=== PATIENT | male | born 1975 | race Caucasian/White ===

== ENCOUNTER 2018-01-10 15:22 | Emergency (ER) | payer MEDICAID, SELFPAY ==
[2018-01-10 15:22] VITALS: BP 114/70; PULSE 71; RESP 16; TEMP 36.9; O2SAT 97; BMI 23.0
--- NOTE | 2018-01-10 15:49 | ED.DCSUM_ITS ---
- ER Visit Summary Date of Service: 01/10/18 Chief Complaint: Facial swelling History of Present Illness: The patient is a [address] Yandel Tello and does not have a dentist. He reports his swelling to the right side of his face that began this morning. He reports he has dental pain on the right maxillary area that began yesterday. It is a sharp, throbbing pain that is 6 out of 10 currently and 9 out of 10 at worst. Reports is increased with eating. Is not sensitive to hot or cold temperatures. Is not taking anything for pain. Physical Examination: Vitals: Stable. Afebrile. Mouth: No trismus. No edema of the floor of the mouth. Pain with percussion of the right maxillary canine through first molar. There is severe decay. There is no focal abscess. He does have mild facial swelling. General: A&O x 3. NAD. Cardiovascular exam: Regular rate and rhythm, no murmur, rub or gallop. Respiratory exam: Clear to auscultation bilaterally. No wheezes or stridor. Abdominal exam: Soft, nontender, nondistended, normal bowel sounds. No peritoneal signs. Extremity: No clubbing, cyanosis, or edema. Emergency Department Course and Treatment: Patient was treated with penicillin and ibuprofen. Treatment Plan: Patient be discharged on penicillin ibuprofen. Instructed to follow-up the dentist as soon as possible. Is given a list of local dentist. Disposition: To home in improved and stable condition. Impression: 1. Dental abscess. This note was generated with [employer] dictation software. It may contain incorrect words, spelling, and punctuation that were not noted in review of the chart prior to signing ED Disposition - Plan for ED Patient: Disposition: Home or Assisted Living Chief Complaint: Dental Instructions: ED Abscess Dental Prescriptions: Ibuprofen [Motrin] 800 mg PO TID PRN PRN #20 tablet PRN Reason: Pain Penicillin V Potassium 500 mg PO 4X/DAY #40 tablet Referrals: Dentist,Your [STAFF PHYSICIAN] - As soon as possible
[2018-01-10] MEDS: Ibuprofen 400 MG Tablet 800 MG PO (16:00)
[2018-01-10] MEDS: Penicillin Vk 250 MG Tablet 500 MG PO (16:00)
[2018-01-10 16:01] VITALS: RESP 18
== END 2018-01-10 16:01 | disposition home or self-care (01) ==
PROVIDERS: Emergency Provider Emergency Medicine; Family Provider Family Medicine; PCP Family Medicine
DX: K04.7 Periapical abscess without sinus (principal); F11.21 Opioid dependence, in remission; Z72.0 Tobacco use
CPT/HCPCS: 99283

== ENCOUNTER 2018-08-26 13:54 | Emergency (ER) | payer MEDICAID, SELFPAY ==
[2018-08-26 13:54] VITALS: BP 122/79; PULSE 73; RESP 16; TEMP 36.7; O2SAT 97; BMI 23.0
--- NOTE | 2018-08-26 15:23 | ED.VISSUMM ---
- ER Visit Summary Date of Service: 08/26/18 Chief Complaint: Mouth pain History of Present Illness: The patient is a 43 M with mouth pain and swelling for several days. Patient has a history of dental decay. He says he has swelling sore. No other associated symptoms. Physical Examination: Afebrile and vital signs are unremarkable. Patient has widespread dental decay and a history of multiple extractions. There is some focal swelling posterior to tooth #8. Gums otherwise unremarkable. Otherwise exam unremarkable. Test Results: None indicated Emergency Department Course and Treatment: Needle aspiration was negative. Patient will be treated with Pen VK and referred to dental. Treatment Plan: As above Disposition: Discharge Impression: 1. Oral lesion This note was generated with [employer] dictation software. It may contain incorrect words, spelling, and punctuation that were not noted in review of the chart prior to signing ED Disposition - Plan for ED Patient: Referrals: Yandel Tello MD [Primary Care Provider] -
--- NOTE | 2018-08-26 15:26 | ED.DCSUM_ITS ---
- ER Visit Summary Date of Service: 08/26/18 Chief Complaint: Mouth pain History of Present Illness: The patient is a 43 M with mouth pain and swelling for several days. Patient has a history of dental decay. He says he has swelling sore. No other associated symptoms. Physical Examination: Afebrile and vital signs are unremarkable. Patient has widespread dental decay and a history of multiple extractions. There is some focal swelling posterior to tooth #8. Gums otherwise unremarkable. Otherwise exam unremarkable. Test Results: None indicated Emergency Department Course and Treatment: Needle aspiration was negative. Patient will be treated with Pen VK and referred to dental. Treatment Plan: As above Disposition: Discharge Impression: 1. Oral lesion This note was generated with [employer] dictation software. It may contain incorrect words, spelling, and punctuation that were not noted in review of the chart prior to signing ED Disposition - Plan for ED Patient: Referrals: Yandel Tello MD [Primary Care Provider] -
--- NOTE | 2018-08-26 15:26 | ED.DEP ---
ED Disposition - Plan for ED Patient: Instructions: ED Abscess Dental Prescriptions: Penicillin V Potassium 500 mg PO 4X/DAY #40 tab Referrals: Desire Mathews [NON-STAFF] -
== END 2018-08-26 15:33 | disposition home or self-care (01) ==
PROVIDERS: Emergency Provider Emergency Medicine
DX: K13.70 Unspecified lesions of oral mucosa (principal); Z72.0 Tobacco use
CPT/HCPCS: 99282

== ENCOUNTER 2022-09-27 21:19 | Emergency (ER) | payer MEDICAID, SELFPAY ==
[2022-09-27 21:20] VITALS: BP 118/76; PULSE 88; RESP 16; TEMP 36.2; O2SAT 100; BMI 20.6
--- NOTE | 2022-09-27 21:24 | EKG12_ITS ---
Test Reason : CP Blood Pressure : / mmHG Vent. Rate : 067 BPM Atrial Rate : 067 BPM P-R Int : 146 ms QRS Dur : 096 ms QT Int : 372 ms P-R-T Axes : 065 082 056 degrees QTc Int : 393 ms Normal sinus rhythm Normal ECG Confirmed by RODOLFO MANN, AMANDA ([id number]), editor at large LESLI LEE ([id number]) on 09/28/2022 1:11:05 PM Referred By: ADELFO Confirmed By:BETINA REYNOLDS MD
--- NOTE | 2022-09-27 21:29 | RAD_ITS ---
INDICATION: COUGH EXAMINATION/TECHNIQUE: X-RAY - XR Chest 1 View COMPARISON: Frontal view FINDINGS: LINES/DEVICES: None. LUNGS: No consolidation, edema or effusion. No pneumothorax. MEDIASTINUM AND CARDIOVASCULAR STRUCTURES: Cardiac silhouette not enlarged. Central airways and mediastinal contour are unremarkable. BONES AND SOFT TISSUES: Unremarkable. RAD/Chest 1 View (Portable) IMPRESSION: No radiographic evidence of acute cardiopulmonary disease. Electronically Signed: Jaxon Saenz DO at 22:27 EDT ,
--- NOTE | 2022-09-27 22:13 | ED.VIS.CHEST ---
HPI History of Present Illness Chief Complaint: Chest Pain Informant: patient Onset/Context/Timing Onset: Hours (1 hour [employer]) Activity at onset: gradual, onset, activity on onset and rest (Prior lying down on the couch, and then worse when he lie down) Timing: Continuous Quality: Positive for Sharp Location: Substernal (Lower substernal without radiation) Current Severity: Mild Maximum Severity: Severe Worsened By: Nothing (Except a little worse by the lying down) Relieved By: - (Sitting up some) Associated Symptoms: Positive for Cough (Cough or the last 3 days with occasional sputum production no blood); Negative for Nausea, Vomiting, Diaphoresis, Dyspnea, Fever, Lightheadedness or Palpitations Narrative Narrative: Healthy patient that started having chest pain especially with lying down supine an hour prior to getting here by EMS. States it really hurt bad, but now it is still there but not very bad. Denies any significant dyspnea. No palpitations or syncope/near syncope. No recent travel or history of PE/DVT or leg pain or swelling. No other immobilization. PFSH PFSH Medical History no medical history no medical history Home Medications buprenorphine 4 mg-naloxone 1 mg sublingual film (Suboxone) 6 mg sublingual DAILY 01/10/18 [History Last Taken Unknown] penicillin V potassium 500 mg tablet 500 mg PO 4X/DAY #40 tabs 08/26/18 [Rx Last Taken Unknown] Allergy/AdvReac Type Severity Reaction Status Date / Time No Known Allergies Allergy Verified 08/26/18 13:54 Social History Smoking Status: Current every day smoker tobacco type: cigarettes ROS ROS ED Constitutional Constitutional ED: Denies chills or fever(s) Eyes Eyes: Denies change in vision or diplopia ENT ENT ED: Denies rhinorrhea or sore throat Cardiovascular Cardiovascular: Reports chest pain; Denies leg edema or palpitations Respiratory/Chest Respiratory/Chest: Reports cough, dyspnea and sputum Gastrointestinal Gastrointestinal: Denies abdominal pain, diarrhea, nausea or vomiting Genitourinary Genitourinary ED: Denies dysuria or hematuria Musculoskeletal Musculoskeletal: Denies back pain or neck pain Integumentary Denies abscess or rash Neurologic Neurologic: Denies headache(s), paresthesias or weakness Psychiatric Psychiatric: Denies anxiety or suicidal thoughts EXAM Physical Exam Const Vital Signs: 09/27/22 21:20 09/27/22 21:22 09/27/22 22:22 Temperature 97.2 F L Temperature Source Temporal Pulse Rate 88 62 Respiratory Rate 16 15 Respiratory Effort Normal Non-Labored Blood Pressure 118/76 114/67 Blood Pressure Mean 90 82 Pulse Ox 100 98 Oxygen Delivery Method Room Air Room Air 09/27/22 23:29 Temperature Temperature Source Pulse Rate 82 Respiratory Rate 16 Respiratory Effort Blood Pressure 124/79 H Blood Pressure Mean 94 Pulse Ox 98 Oxygen Delivery Method Room Air Positive well nourished and well developed General Appearance ED: well developed and NAD HEENT Reports moist mucous membranes normocephalic and atraumatic Eyes PERRL and EOMs intact bilaterally Neck full ROM and supple Chest Wall inspection of chest normal and palpation of chest normal Resp normal respiratory effort and clear to auscultation bilaterally Cardio regular rate, regular rhythm and no murmurs Rate: Negative for tachycardic GI non-tender and non-distended Auscultation: normoactive bowel sounds Palpation: soft Back/Spine no CVA tenderness General Back: other FROM Extremity normal to inspection Extremity Narrative: No calf tenderness or palpable cords General Extremety ED: Negative for edema, pulses abnormal or tenderness General Extremity: Negative for edema or pulses abnormal Neuro oriented x3, CN's II-XII intact bilaterally and no sensory deficits noted Sensorium / Orientation: awake and alert Motor Exam: strength 5/5 throughout Psych mental status grossly normal Skin no rashes or lesions noted and no wounds Heart Score History: Slightly/Non-Suspicious ECG: Normal Age: </= 45 years Risk Factors: 1 or 2 Risk Factors Troponin: </= Normal Limit Score: 1 MDM MDM MDM Narrative Medical decision making narrative: PERC score is 0, therefore ruling out acute pulmonary embolus as cause for the symptoms without further work-up indicated. Chest ray 1 view my interpretation is negative for mediastinal widening, pneumothorax, infiltrate. It is normal-appearing. His troponin is 4, very reassuring I do not think this needs to be repeated, since we given a GI cocktail and viscous the discomfort resolves. I offered him an antitussive prescription he declines, reassured this is likely simply viral URI, his vital signs are normal with no hypoxemia, stable for discharge home. Likely esophageal in etiology as far as the etiology of the pain, I think it was probably related to swallowing lots of sputum lately. Lab Data Attestation: I reviewed the patient's lab results. Labs: Laboratory Results - last 24 hr 09/27/22 22:25 Troponin I High Sens 4 Radiography Diagnostic Testing: Clinical Impression(s) from Imaging Studies Chest X-Ray 09/27/22 21:29 IMPRESSION: No radiographic evidence of acute cardiopulmonary disease. Electronically Signed: Jaxon Saenz DO at 22:27 EDT Reading Location ID and State: [facility] / MD Tel [phone], Service support , Rhythm Strip Rhythm Strip: Sinus Rhythm Rate: 65 Ectopy: None EKG Initial EKG: Attestation: I personally reviewed and interpreted this EKG as follows: Interpretation: Sinus Rhythm and No Acute Injury Pattern Comments: Normal EKG Discharge Plan Triage Chief Complaint: Chest Pain ED Provider: Selvin Whitehead Dx/Rx/DC Orders Clinical Impression: Chest pain, non-cardiac, Viral URI with cough Instructions: ED Chest Pain, Noncardiac Prescriptions: No Action buprenorphine-naloxone [Suboxone] 1 EACH film 6 mg sublingual DAILY penicillin V potassium 500 MG tablet 500 mg PO 4X/DAY Qty: 40 0RF Primary Care Provider: Aurelia Manrique NP Referrals: Aurelia Manrique NP, [employer] [Primary Care Provider] - 3-5 Days if not improving Disposition Disposition: Home, Self Care
[2022-09-27] MEDS: Mag Hydrox/Al Hydrox/Simeth 30 ML UDC PO (22:21)
[2022-09-27 22:22] VITALS: BP 114/67; PULSE 62; RESP 15; O2SAT 98
[2022-09-27 22:46] LABS: Troponin-I HS 4 pg/mL (3.0-78.0)
[2022-09-27 23:29] VITALS: BP 124/79; PULSE 82; RESP 16; O2SAT 98
== END 2022-09-28 00:07 | disposition home or self-care (01) ==
PROVIDERS: Emergency Provider Emergency Medicine; PCP Nurse Practitioner Primary Care; Visit Provider Emergency Medicine
DX: R07.89 Other chest pain (principal); J06.9 Acute upper respiratory infection, unspecified; F17.210 Nicotine dependence, cigarettes, uncomplicated
CPT/HCPCS: 71045; 84484; 93005; 99285

== ENCOUNTER 2023-12-24 18:40 | Emergency (ER) | payer MEDICAID, SELFPAY ==
[2023-12-24 18:41] VITALS: BP 128/80; PULSE 84; RESP 16; TEMP 35.8; O2SAT 97; BMI 19.0
[2023-12-24] MEDS: Amox/Clavulanate 875 MG Tablet PO (19:14)
[2023-12-24] MEDS: Lidocaine 2% /Epi 1:100 (20ml) 20 ML VIAL INFILT (19:15)
--- NOTE | 2023-12-24 19:41 | EX.ED.DYSGE1 ---
HPI History of Present Illness Chief Complaint: Laceration Informant: patient Narrative Narrative: Patient is a 48-year-old male with no reported significant past medical history. He states that he got up this morning and was walking to the bathroom when he tripped and fell and struck his head. He denies any loss of consciousness history of bleeding disorder or blood thinner use. He states he sustained a cut to his forehead with the fall and he was unsure if this needed sutures or not so therefore comes in for evaluation. He also reports he has had a lump in his right armpit and he is unsure if this is infected or not [facility] Home Medications ?Medication ?Instructions ?Recorded ?Last Taken ?Type buprenorphine 4 mg-naloxone 1 mg 6 mg sublingual DAILY 01/10/18 Unknown History sublingual film (Suboxone) penicillin V potassium 500 mg 500 mg PO 4X/DAY #40 tabs 08/26/18 Unknown Rx tablet amoxicillin 875 mg-potassium 1 tab PO BID 7 days #14 tabs 12/24/23 Unknown Rx clavulanate 125 mg tablet Allergy/AdvReac Type Severity Reaction Status Date / Time No Known Allergies Allergy Verified 08/26/18 13:54 Social History Smoking Status: Current every day smoker tobacco type: cigarettes ROS ROS ED Constitutional Constitutional ED: Denies chills or fever(s) Eyes Eyes: Denies blurry vision or change in vision ENT ENT ED: Denies sore throat Cardiovascular Cardiovascular: Denies chest pain Respiratory/Chest Respiratory/Chest: Denies cough or dyspnea Gastrointestinal Gastrointestinal: Denies abdominal pain, diarrhea, nausea or vomiting Genitourinary Genitourinary ED: Denies dysuria Musculoskeletal Musculoskeletal: Denies myalgias or neck pain Integumentary Reports abscess and Abrasions Neurologic Neurologic: Denies headache(s) Hematologic/Lymphatic Hematologic/Lymphatic: Denies easy bleeding or easy bruising EXAM Physical Exam Const Vital Signs: 12/24/23 18:41 Temperature 96.5 F L Temperature Source Temporal Pulse Rate 84 Respiratory Rate 16 Blood Pressure 128/80 H Blood Pressure Mean 96 Pulse Ox 97 Oxygen Delivery Method Room Air Positive well nourished and well developed General Appearance ED: well developed HEENT HEENT Narrative: No signs of depressed or basilar skull fracture Patient has a 1.5 cm linear dermal layer deep laceration just above the medial right eyebrow with a surrounding small hematoma consistent with his report of trauma No septal hematoma Eyes PERRL and EOMs intact bilaterally Eyes Narrative: No hyphema noted Neck supple Neck Narrative: No bony deformity or step-off of the cervical spine no midline tenderness to palpation Chest Wall palpation of chest normal Resp normal respiratory effort and clear to auscultation bilaterally Cardio regular rate and regular rhythm Extremity normal to inspection Neuro oriented x3, CN's II-XII intact bilaterally and no sensory deficits noted Sensorium / Orientation: alert Motor Exam: strength 5/5 throughout Psych mental status grossly normal Skin Skin Narrative: Patient has a small 1 x 1 cm area of erythema and induration in the right axilla consistent with abscess. No active drainage or lymphangitic streaking noted. MDM MDM MDM Narrative Medical decision making narrative: Patient arrived to ER with stable vitals. He reported a mechanical fall that led to head injury multiple hours ago. He denies any history of bleeding disorder or blood thinner use. He states that there has been no headache or change in vision and therefore I do not feel there is need for head CT as my concern for underlying skull fracture versus subdural epidural hematoma is low. The laceration is only dermal layer deep and there is no active bleeding therefore will be closed with Dermabond as documented below. Patient also has a small abscess in the right axilla. There are no signs of systemic infection and he is not immunosuppressed therefore the area will be incised and drained and he will be placed on antibiotics but otherwise is safe for discharge Patient had the right forehead laceration cleaned with chlorhexidine. Manual pressure was applied to bring the wound edges together good approximation. Dermabond was then applied holding the wound edges together well. Patient tolerated procedure well without complication Patient had the right axilla cleaned with chlorhexidine. It was anesthetized with 5 mL of 2% lidocaine with epinephrine in local fashion. A #11 blade was used to make a 1 cm incision over top the area of induration. A moderate amount of purulent material was expressed. Loculations were dissected with a needle landa. The area was then copiously irrigated with normal saline. Patient tolerated the procedure well without complication History & Record Review Discussion w/independent historian: Patient Discharge Plan Triage Chief Complaint: Laceration Other Complaint: Abscess ED Provider: Lanre Marroquin Dx/Rx/DC Orders Clinical Impression: Abscess of axilla, right, Hematoma, Head injury Instructions: ED Abscess Incision And Drainage, ED Head Injury (Adult) Prescriptions: New amoxicillin-pot clavulanate 875-125 mg tablet 1 tab PO BID 7 Days Qty: 14 0RF No Action buprenorphine-naloxone [Suboxone] 1 EACH film 6 mg sublingual DAILY penicillin V potassium 500 MG tablet 500 mg PO 4X/DAY Qty: 40 0RF Primary Care Provider: Maico Abad Referrals: Maico Abad MD [Primary Care Provider] - Activity Restrictions/Additional Instructions: Please take the antibiotic as directed to resolve the remaining infection of the right armpit. The Dermabond applied to your forehead will fall off like a scab over the course of 10 to 14 days. Return to the ER should you have any further concerns Print Language: Vietnamese Disposition Disposition: Home, Self Care Discharge Date/Time: 12/24/23 19:57
[2023-12-24 19:56] VITALS: BP 112/75; PULSE 81; RESP 16; TEMP 36.7; O2SAT 97
== END 2023-12-24 19:57 | disposition home or self-care (01) ==
PROVIDERS: Emergency Provider Emergency Medicine; PCP Family Medicine; Visit Provider Emergency Medicine
DX: L02.411 Cutaneous abscess of right axilla (principal); S00.93XA Contusion of unspecified part of head, initial encounter; F17.210 Nicotine dependence, cigarettes, uncomplicated; W19.XXXA Unspecified fall, initial encounter
CPT/HCPCS: 99282

== ENCOUNTER 2024-06-29 14:14 | Emergency (ER) | payer MEDICAID, SELFPAY ==
[2024-06-29 14:15] VITALS: BP 115/65; PULSE 62; RESP 14; TEMP 36.2; O2SAT 99
--- NOTE | 2024-06-29 14:23 | RAD_ITS ---
EXAM: XR Right Foot Complete, 3 or More Views CLINICAL INDICATION: TECHNIQUE: Frontal, lateral and oblique views of the right foot. COMPARISON: No relevant prior studies available. FINDINGS: BONES/JOINTS: Comminuted mildly displaced fracture of the 5th metatarsal. Soft tissue swelling. No dislocation. SOFT TISSUES: See above. RAD/Foot min 3 Views IMPRESSION: Comminuted mildly displaced fracture of the 5th metatarsal. Soft tissue swelli ng. Reading Location: [facility]
--- NOTE | 2024-06-29 16:35 | EX.ED.DYSGE1 ---
HPI History of Present Illness Chief Complaint: Lower Extremity Injury Narrative Narrative: Patient is a 49-year-old male with past medical history of opiate abuse on Suboxone who presents to the emergency department chief complaint of right foot pain. He states that he got up in the middle the night and hit his foot on a TV stand and felt a crack and immediate pain. He states that the pain caused him to drop to his knees. He states that he had difficulty ambulating on this therefore he came here further evaluation management. PFSH [facility] Home Medications ?Medication ?Instructions ?Recorded ?Last Taken ?Type buprenorphine 4 mg-naloxone 1 mg 6 mg sublingual DAILY 01/10/18 Unknown History sublingual film (Suboxone) penicillin V potassium 500 mg 500 mg PO 4X/DAY #40 tabs 08/26/18 Unknown Rx tablet amoxicillin 875 mg-potassium 1 tab PO BID 7 days #14 tabs 12/24/23 Unknown Rx clavulanate 125 mg tablet Allergy/AdvReac Type Severity Reaction Status Date / Time No Known Allergies Allergy Verified 06/29/24 14:15 Social History Smoking Status: Current every day smoker tobacco type: cigarettes ROS ROS ED ROS Narrative Constitutional: Denies headaches, lightness, dizziness Neurological: Denies numbness, weakness, tingling Musculoskeletal: Complains of right foot pain as noted above Skin: Complains of bruising noted to the dorsal aspect of his right foot EXAM Physical Exam Narrative Exam Narrative: General: Patient lying in bed rest comfortably did not appear to be acute distress Head: Atraumatic, normocephalic Eyes: PERRL bilateral, EOMI bilaterally, no conjunctival injection noted Neck: Soft, supple, trachea midline Musculoskeletal: Tenderness palpation along the dorsal lateral right foot no tenderness palpation, although bony prominence palpated joints taken through full range of motion no pain elicited Extremities: DP pulses +2/4 in the bilateral extremities, +5/5 strength noted in the bilateral upper and lower extremities, no pedal edema noted on exam Neurological: Patient following commands knew that he was at [facility] year is 2024. Sensation grossly intact Skin: Warm, dry, intact no rashes or lesions noted Const Vital Signs: 06/29/24 14:15 Temperature 97.1 F L Temperature Source Temporal Pulse Rate 62 Respiratory Rate 14 Blood Pressure 115/65 Blood Pressure Mean 81 Pulse Ox 99 Oxygen Delivery Method Room Air MDM MDM MDM Narrative Medical decision making narrative: Patient is a 49-year-old male who presented to the emerged part with chief complaint of right foot pain. On the differential diagnose includes Melamin to metatarsal fracture, musculoskeletal strain, lateral malleolus fracture. Once workup is obtained reviewed he will be reevaluated. Patient is on Suboxone therefore he does not want any narcotics he states that he will take ibuprofen. Patient's x-ray of his right foot reviewed by myself and by radiology which showed a comminuted mildly placed fracture of the fifth metatarsal with soft tissue swelling. Did discuss case with on-call foot and ankle surgeon Dr. Fuentes who states to place the patient in a splint and keep him nonweightbearing and call his office first thing next week for an appointment. Patient was advised to do not bear weight on this to rotate Tylenol and ibuprofen [id number]. He is advised to follow-up with the foot and ankle surgeon that I discussed with above. He is advised to ice, elevate and keep the splint dry and clean. He is agreeable this plan he like to go home at this point time all question concerns answered is discharged home in stable condition. Radiography Diagnostic Testing: Clinical Impression(s) from Imaging Studies Foot X-Ray 06/29/24 14:23 IMPRESSION: Comminuted mildly displaced fracture of the 5th metatarsal. Soft tissue swelling. Reading Location: [facility] Discharge Plan Triage Chief Complaint: Lower Extremity Injury ED Provider: Kishore Patterson Dx/Rx/DC Orders Clinical Impression: Closed fracture of fifth metatarsal bone Prescriptions: No Action buprenorphine-naloxone [Suboxone] 1 EACH film 6 mg sublingual DAILY penicillin V potassium 500 MG tablet 500 mg PO 4X/DAY Qty: 40 0RF amoxicillin-pot clavulanate 875-125 mg tablet 1 tab PO BID 7 Days Qty: 14 0RF Stand Alone Forms: ED Work / School Excuse Primary Care Provider: Maico Abad Referrals: Maico Abad MD [Primary Care Provider] - Gonzales Fuentes DPM [Med Staff - Courtesy Staff] - Activity Restrictions/Additional Instructions: Rotate Tylenol and ibuprofen [id number] for pain control when you do this you can take something every 3 hours. Ice, elevate, do not bear weight on your right lower extremity. Keep the splint in place dry and clean. Call on Tuesday for an appointment to Dr. Fuentes office for appointment. Return with worsening symptoms or any concerns. Print Language: [place] Citizen Disposition Disposition: Home, Self Care
[2024-06-29] MEDS: Ibuprofen 600 MG Tablet PO (16:41)
== END 2024-06-29 17:46 | disposition home or self-care (01) ==
PROVIDERS: Emergency Provider Emergency Medicine; PCP Family Medicine; Visit Provider Emergency Medicine
DX: S92.351A Displaced fracture of fifth metatarsal bone, right foot, initial encounter for closed fracture (principal); F11.10 Opioid abuse, uncomplicated; W22.09XA Striking against other stationary object, initial encounter; F17.210 Nicotine dependence, cigarettes, uncomplicated; Z79.891 Long term (current) use of opiate analgesic
CPT/HCPCS: 29515; 73630; 99283

== ENCOUNTER 2024-07-10 14:12 | Emergency (ER) | payer MEDICAID, SELFPAY ==
[2024-07-10 14:13] VITALS: BP 136/93; PULSE 95; RESP 18; TEMP 36.2; O2SAT 96
--- NOTE | 2024-07-10 15:36 | ED.VIS.LOWEX ---
HPI History of Present Illness HPI Narrative: Patient presents with coldness and bruising to his right foot that began last night. Patient states he has a fracture in his right foot and is in a walking boot. Patient states he used some blankets and moist heat which helped. Patient denies any coldness at the present time. Patient describes his pain as aching. Patient denies any paresthesias or weakness. 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 Chief Complaint: Lower Extremity Injury Informant: patient Onset/Context/Timing Onset: Yesterday Context: Gradual Onset Timing: Continuous Location: Right foot Worsened by: Nothing Relieved by: Heat Associated Symptoms Associated Symptoms: Negative for Parasthesia, Weakness or Loss of Funtion PFSH PFS Home Medications ?Medication ?Instructions ?Recorded ?Last Taken ?Type buprenorphine 4 mg-naloxone 1 mg 6 mg sublingual DAILY 01/10/18 Unknown History sublingual film (Suboxone) penicillin V potassium 500 mg 500 mg PO 4X/DAY #40 tabs 08/26/18 Unknown Rx tablet amoxicillin 875 mg-potassium 1 tab PO BID 7 days #14 tabs 12/24/23 Unknown Rx clavulanate 125 mg tablet Allergy/AdvReac Type Severity Reaction Status Date / Time No Known Allergies Allergy Verified 07/10/24 14:13 Surgical History (Updated 07/10/24 @ 15:[address] Gregg Ferreira DO) S/P trigger finger release Social History Smoking Status: Current every day smoker tobacco type: cigarettes ROS ROS ED Constitutional Constitutional ED: Denies chills or fever(s) Eyes Eyes: Denies blurry vision or change in vision ENT ENT ED: Denies rhinorrhea or sore throat Cardiovascular Cardiovascular: Denies chest pain or palpitations Respiratory/Chest Respiratory/Chest: Denies cough or dyspnea Gastrointestinal Gastrointestinal: Denies nausea or vomiting Genitourinary Genitourinary ED: Denies dysuria or hematuria Musculoskeletal Musculoskeletal: Denies back pain or neck pain Integumentary Denies abscess or rash Neurologic Neurologic: Denies headache(s) or weakness Allergic/Immunologic Allergic/Immunologic ED: Denies mouth swelling or urticaria EXAM Physical Exam Const Vital Signs: 07/10/24 14:13 Temperature 97.2 F L Temperature Source Temporal Pulse Rate 95 Respiratory Rate 18 Blood Pressure 136/93 H Blood Pressure Mean 107 Pulse Ox 96 Oxygen Delivery Method Room Air Positive well nourished and well developed General Appearance ED: well developed and NAD HEENT Reports moist mucous membranes Neck full ROM and supple Extremity Extremity Narrative: There is some tenderness and ecchymosis over the distal third and fourth metatarsals of the right foot. There is no obvious deformity noted. Range of motion was slightly limited in all motions of the right foot secondary to pain. Sensation was intact to light touch in all digits. Pedal pulses are equal bilaterally. Capillary refill was less than 2 seconds in all digits. Neuro oriented x3, CN's II-XII intact bilaterally, moves all extremities and no sensory deficits noted Sensorium / Orientation: alert Motor Exam: strength 5/5 throughout Psych mental status grossly normal MDM MDM MDM Narrative Medical decision making narrative: Patient was advised that he has good circulation at this time. I do not feel repeat x-rays are necessary at this time since there is no new injury. Patient was instructed to keep his foot elevated. Patient was instructed to follow-up with his [facility] [employer] as scheduled. Patient was instructed to return if worse in any way. Patient understood and was agreeable with the plan. All questions were answered. Discharge Plan Triage Chief Complaint: Lower Extremity Injury ED Provider: Gregg Ferreira Dx/Rx/DC Orders Clinical Impression: Paresthesia of right foot, Fracture of right foot Instructions: ED Paraesthesias Prescriptions: No Action buprenorphine-naloxone [Suboxone] 1 EACH film 6 mg sublingual DAILY penicillin V potassium 500 MG tablet 500 mg PO 4X/DAY Qty: 40 0RF amoxicillin-pot clavulanate 875-125 mg tablet 1 tab PO BID 7 Days Qty: 14 0RF Primary Care Provider: Maico Abad Referrals: Maico Abad MD [Primary Care Provider] - 5-7 Days Activity Restrictions/Additional Instructions: Follow-up with your [facility] [employer] as scheduled. Print Language: Sami Disposition Disposition: Home, Self Care
[2024-07-10 16:00] VITALS: BP 133/74; PULSE 82; RESP 16; TEMP 36.2; O2SAT 99
== END 2024-07-10 16:02 | disposition home or self-care (01) ==
PROVIDERS: Emergency Provider Emergency Medicine; PCP Family Medicine; Visit Provider Emergency Medicine
DX: S92.901A Unspecified fracture of right foot, initial encounter for closed fracture (principal); R20.2 Paresthesia of skin; X58.XXXA Exposure to other specified factors, initial encounter; F17.210 Nicotine dependence, cigarettes, uncomplicated
CPT/HCPCS: 99282